=== PATIENT | female | born 1965 | race Caucasian/White ===

== ENCOUNTER 2017-03-04 08:07 | Emergency (ER) | payer OTHER ==
[2017-03-04 08:25] VITALS: TEMP 98.5; BMI 23.8
--- NOTE | 2017-03-04 08:44 | PDOC ---
History of Present Illness - General Chief Complaint: Chest Pain Stated Complaint: BACK TO CHEST TIGHTNESS Time Seen by Provider: 03/04/17 08:14 History Source: Patient, EMS Exam Limitations: No Limitations - History of Present Illness Initial Comments: 03/04/17 08:39 CHIEF COMPLAINT: Chest pain and back pain since awakening at 6:30 AM HISTORY OF PRESENT ILLNESS: This is a healthy 51-year-old woman who presents complaining of tightness in the chest in the left upper back since awakening at 6:30 AM. The patient set her alarm and got up at 6:30, but the pain did not wake her up. The discomfort and tightness in her chest and her left medial scapular region was present upon awakening. There is a definite discomfort. It seems to get worse with turning the head to the right or turning the trunk to the right. The pain is somewhat dull and aching in nature, tight in nature, steady in moderate. There is no fever or cough. There is no shortness of breath. There is no diaphoresis. There is no radiation to the arms. The pain is most prominent in the left posterior shoulder region just medial to the scapula. REVIEW OF SYSTEMS: GENERAL/CONSTITUTIONAL: No fever or chills. No weakness. No weight change. HEAD, EYES, EARS, NOSE AND THROAT: No change in vision. No ear pain or discharge. No sore throat. CARDIOVASCULAR: Positive chest pain but no shortness of breath. RESPIRATORY: No cough, wheezing, or hemoptysis. GASTROINTESTINAL: No nausea, vomiting, diarrhea or constipation. No rectal bleeding. GENITOURINARY: No dysuria, frequency, or change in urination. MUSCULOSKELETAL: No joint or muscle swelling. No neck pain. Positive for left medial scapular back pain. SKIN AND BREASTS: No rash or easy bruising. NEUROLOGIC: No headache, vertigo, loss of consciousness, or loss of sensation. PSYCHIATRIC: No depression or anxiety. ENDOCRINE: No increased thirst. No abnormal weight change. HEMATOLOGIC/LYMPHATIC: No anemia, easy bleeding, or history of blood clots. ALLERGIC/IMMUNOLOGIC: No hives or skin allergy. No latex allergy. Past History - Past Medical History Allergies/Adverse Reactions: Allergies Allergy/AdvReac Type Severity Reaction Status Date / Time Penicillins Allergy Unknown Verified 03/04/17 09:31 Home Medications: Ambulatory Orders Ascorbate Calcium [Vitamin C] 500 mg PO DAILY 03/04/17 Cholecalciferol (Vitamin D3) [Vitamin D3 -] 400 unit PO DAILY 03/04/17 Diabetes: No HTN: No Hypercholesterolemia: No Other medical history: denies - Psycho/Social/Smoking Cessation Hx Anxiety: No Suicidal Ideation: No Smoking Status: No Smoking History: Never smoked Have you smoked in the past 12 months: No Information on smoking cessation initiated: No Hx Alcohol Use: Yes (1 glass per week) Drug/Substance Use Hx: No Substance Use Type: Alcohol *Physical Exam - Vital Signs Last Vital Signs Temp Pulse Resp BP Pulse Ox 98.5 F 51 L 20 110/74 100 03/04/17 08:08 03/04/17 08:08 03/04/17 08:08 03/04/17 08:08 03/04/17 08:08 - Physical Exam Comments: 03/04/17 08:42 GENERAL: The patient is awake, alert, and fully oriented, in no acute distress. HEAD: Normal with no signs of trauma. EYES: Pupils equal, round and reactive to light, extraocular movements intact, sclera anicteric, conjunctiva clear. ENT: Ears normal, nares patent, oropharynx clear without exudates. Moist mucous membranes. NECK: Normal range of motion, supple without lymphadenopathy, JVD, or masses. LUNGS: Breath sounds equal, clear to auscultation bilaterally. No wheezes, and no crackles. HEART: Regular rate and rhythm, normal S1 and S2 without murmur, rub or gallop. ABDOMEN: Soft, nontender, normoactive bowel sounds. No guarding, no rebound. No masses. EXTREMITIES: Normal range of motion, no edema. No clubbing or cyanosis. No cords, erythema, or tenderness. NEUROLOGICAL: Cranial nerves II through XII grossly intact. Normal speech, normal gait. There is some increase in left medial scapular discomfort on turning of the head or reaching across the chest with the left arm. PSYCH: Normal mood, normal affect. SKIN: Warm, Dry, normal turgor, no rashes or lesions noted. Heart Score/ECG Review - ECG Intrepretation Comment:: 03/04/17 08:44 Twelve-lead EKG shows sinus bradycardia at 51 bpm. The axis is borderline leftward. The intervals are normal. There is no ST elevation or depression. There are no abnormal T waves. Impression: Normal EKG. Borderline left axis is not significant. ED Treatment Course - LABORATORY CBC & Chemistry Diagram: 03/04/17 08:40 03/04/17 08:40 - RADIOLOGY Radiology Studies Ordered: Category Date Time Status CHEST PA & LAT [RAD] Stat Radiology 03/04/17 08:26 Ordered Medical Decision Making - Medical Decision Making 03/04/17 11:42 Is a 51-year-old woman with no diabetes, hypertension, hyperlipidemia, or smoking.. There is a family history of premature heart disease in one of her grandparents. Patient presents complaining of left rhomboid area pain, as well as diffuse chest tightness. The pain gets worse with movement of the left arm or turning of the head. There is no specific trauma recalled. There is no fever or cough. There is no pleuritic pain or shortness of breath. On examination, the lungs are clear and the heart sounds are normal. The legs are normal without signs of swelling or pain. Twelve-lead EKG shows sinus bradycardia with no acute ischemic changes. Laboratory workup was performed and includes negative troponin. Chest xray was reviewed by me and appears normal. The radiologist commented about possible COPD but there is no smoking history and the chest xray appears more consistent with good inspiration and not with hyperinflation. The most likely etiology of the pain is musculoskeletal. However, the pain is somewhat nonspecific. The patient's heart score points, 1 point for history, 1 point for age, and 1 point for the family history of heart disease, placing her in the low risk category. Patient has been advised to follow-up with her primary care physician. *DC/Admit/Observation/Transfer Diagnosis at time of Disposition: Chest pain Qualifiers: Chest pain type: unspecified Qualified Code(s): R07.9 - Chest pain, unspecified - Discharge Dispostion Disposition: HOME Condition at time of disposition: Stable Admit: No - Patient Instructions Printed Discharge Instructions: DI for Atypical Chest Pain Additional Instructions: You were evaluated today for chest pain and back pain. The exact cause was not determined. It may be muscular pain in the rhomboid muscle. All of the heart tests were normal. The chest xray is normal. It is advised that you follow up with your primary care physician in the next 24-48 hours. Please return to the emergency department immediately for any severe or progressive symptoms.
[2017-03-04 09:05] LABS: BASOPHIL 1.2 % (0-2.0); EOSINOPHIL 3.5 % (0-4.5); MCHC 34.2 g/dl (32.0-35.9); MEAN CELL VOLUME 90.6 fl (80-96); MEAN PLT VOLUME 10.3 fl (7.5-11.1); NEUTROPHILS 45.6 % (42.8-82.8); PLATELET COUNT 161 K/MM3 (134-434); RDW 12.2 % (11.9-15.9); WHITE BLOOD COUNT 3.9 K/mm3 (4.0-10.8)
[2017-03-04 10:06] VITALS: BP 106/68; PULSE 61
[2017-03-04] MEDS ORDERED: NAPROXEN 375 MG TABLET (FP) PO ONE (10:16)
[2017-03-04] MEDS ORDERED: NAPROXEN 375 MG TABLET (FP) ONE (10:20)
[2017-03-04 11:05] LABS: ALBUMIN 3.7 g/dl (3.5-5.0); ALK PHOS 61 U/L (32-92); ANION GAP 8 (8-16); CALCIUM 9.3 mg/dl (8.4-10.2); CO2 26 mmol/L (22-28); CPK(DFH) 60 IU/L (26-140); CREATININE 0.7 mg/dl (0.6-1.3); GLUCOSE,RANDOM 94 mg/dl (74-106); SGOT/AST 20 U/L (10-42); SGPT/ALT 14 U/L (10-40)
[2017-03-04 11:31] LABS: TROPONIN I (DFP) < 0.03 ng/ml (0.03-0.50)
--- NOTE | 2017-03-04 11:48 | EKG ---
Test Reason : Blood Pressure : / mmHG Vent. Rate : 051 BPM Atrial Rate : 051 BPM P-R Int : 174 ms QRS Dur : 082 ms QT Int : 422 ms P-R-T Axes : 046 -31 030 degrees QTc Int : 388 ms SINUS BRADYCARDIA LEFT AXIS DEVIATION ABNORMAL ECG NO PREVIOUS ECGS AVAILABLE Confirmed by KATIE ROGERS, GAVIOTA ([id number]) on 03/04/2017 11:48:16 AM Referred By: LINA MOONEY Confirmed By:GAVIOTA WILSON MD
== END 2017-03-04 11:58 | disposition home or self-care (01) ==
LOC: EDSEX 08:07 → FER 08:07
DX: R07.9 Chest pain, unspecified (principal)
CPT/HCPCS: 36415; 71020-TC; 80053; 82550; 84484; 85025; 93005; 99283-25